=== PATIENT | female | born 1935 | race Caucasian/White ===

== ENCOUNTER 2017-04-29 07:42 | Emergency (ER) | payer OTHER ==
[~2017-04-29] VITALS: Ht 157.5 cm; Wt 68.4 kg
[~2017-04-29 07:42] MED LIST: ASPI-391; ASPI81TA28 PO; ATEN-175 PO; ATOR-22 PO; ATV/1 PO; CHOL100010 PO; LOSA50TA6 PO
[2017-04-29 07:46] VITALS: Ht 157.5 cm; Wt 68.4 kg
[2017-04-29] MEDS ORDERED: TRIAMCINOLONE ACET 0.1% CR 15 GM TUBE EXT STA (08:11)
[2017-04-29] MEDS ORDERED: PRED20TA PO (08:16)
--- NOTE | 2017-04-29 08:57 | EMERGENCY ROOM VISIT NOTE ---
History Report prepared by Paula: Hedy Rivas Under the Supervision of: Dr. Jakub Carrillo M.D. First contact with patient: 08:02 Chief Complaint: RASH Stated Complaint: RASH,ITCHINESS,ALLERGIC REACTION History of Present Illness The patient is an 81 year old female who presents to the Emergency Room with complaints of a worsening rash that started 5 days ago. The patient states that she started a new topical medication 8 days ago and then developed the rash 3 days after. She states that the rash is pruritic and started on the back of her neck. She states that the rash started out feeling and looking like a mosquito bite. The rash has spread to her bilateral arms and she noticed an erythematous patch on her face today which caused her to become more concerned. The patient states that she was not applying the new topical medication to the places that she has the rash but she read that a reaction can occur in other areas than the places she applied the topical medication to. The patient states that she was able to relieve the pruritus with hydrocortisone cream, but it did not resolve the rash itself. Pt denies LOC, headache, fevers, chills, diaphoresis, visual changes, rash in mouth or nose, cough, recent flu-like symptoms, neck pain, chest pain, breathing difficulties, nausea, vomiting, abdominal pain, back pain , urinary symptoms, numbness, weakness, lymphadenopathy, or other complaints. She also denies any possible contact with poison bhavya and states that she lives at the [place]. She states that she only goes outside to water her abdullahi. The patient denies any history of diabetes. She also denies using oral steroids in the past. Source of History: patient Onset: 5 days ago Position: head, neck, arm (bilateral) Quality: other (rash) Timing: worsening Note: pruritus Review of Systems See HPI for pertinent positives and negatives. A total of 6 systems were reviewed and were otherwise negative. Past Medical & Surgical Medical Problems: (1) Glaucoma (2) High cholesterol (3) Hypertension Family History Hypertension Social History Smoking Status: Never Smoker Alcohol Use: none Marital Status: Housing Status: lives with family Occupation Status: retired Current/Historical Medications Scheduled Aspirin (Aspirin Ec), 81 MG PO DAILY Ezrvthw-Ixgjatrnahdsd-Kjmsucme (Excedrin Extra Strength), PRN Atenolol (Tenormin), 100 MG PO DAILY Atorvastatin (Lipitor), 40 MG PO DAILY Cholecalciferol (Vitamin D), 1,000 UNITS PO DAILY Losartan Potassium (Cozaar), 50 MG PO DAILY Prednisone (Prednisone), 20 MG PO DAILY Scheduled PRN Lorazepam (Ativan), 1 MG PO TID PRN for Anxiety Allergies Coded Allergies: Amoxicillin (Verified Allergy, Mild, RASH, 04/29/17) Sulfa Drugs (Verified Allergy, Mild, RASH, 04/29/17) Sulfamethoxazole w/Trimethoprim (Verified Allergy, Mild, RASH, 04/29/17) Benzalkonium Chloride (Verified Allergy, Unknown, EYE ITCHING, 04/29/17) Penicillins (Verified Allergy, Unknown, 04/29/17) Travoprost (Verified Allergy, Unknown, EYE ITCHING, 04/29/17) Uncoded Allergies: DISPRONOX (Allergy, Unknown, unknown, 12/06/14) Physical Exam Vital Signs Date Time Temp Pulse Resp B/P (MAP) Pulse Ox O2 Delivery O2 Flow Rate FiO2 04/29/17 07:46 37.0 87 18 149/85 98 Room Air Physical Exam GENERAL: Awake, alert, well-appearing, in no distress HENT: Normocephalic, atraumatic. Oropharynx unremarkable. EYES: Normal conjunctiva. Sclera non-icteric. PERRLA. NECK: Supple. No nuchal rigidity. FROM. RESPIRATORY: Clear to auscultation. CARDIAC: Regular rate, normal rhythm. Extremities warm and well perfused. Pulses equal. ABDOMEN: Soft, non-distended. No tenderness to palpation. No rebound or guarding. No masses. MUSCULOSKELETAL: Chest examination reveals no tenderness. The back is symmetrical on inspection without obvious abnormality. There is no CVA tenderness to palpation. No joint edema. LOWER EXTREMITIES: Calves are equal size bilaterally and non-tender. No edema. No discoloration. NEURO: Normal sensorium. No sensory or motor deficits noted. SKIN: Erythematous patches on the back of the neck, above the right eyelid, left antecubital forearm arm area, and the right antecubital forearm area. No jaundice noted. No vesicles. No bullae. No cellulitis or petechiae. Medical Decision & Procedures Medications Administered Medications (Trade) Dose Ordered Sig/Alan Route Start Time Stop Time Status Last Admin Dose Admin Prednisone (PredniSONE TAB) 20 mg NOW STAT PO 04/29/17 08:11 04/29/17 08:14 DC 04/29/17 08:18 20 MG Triamcinolone Acetonide (Kenalog 0.1% Cream) 1 appln NOW STAT EXT 04/29/17 08:11 04/29/17 08:14 DC 04/29/17 08:49 1 APPLN ED Course 0806: The patient was evaluated in room B8. A complete history and physical exam was performed. 08: Ordered Triamcinolone Acetonide 1 appln EXT, Prednisone 20 mg PO 0817: After examination, discussed results and discharge instructions: she verbalized understanding and agreement. The patient is ready for discharge. Medical Decision Medication Reconciliation: I attest that I have personally reviewed the patient' s current medication list Blood pressure screening: Patient was found to have an elevated blood pressure and was referred to their primary doctor for recheck and further treatment. Triage Nursing notes reviewed and agree them. The patient's history was concerning for a rash. Differential diagnosis: Etiologies such as contact dermatitis, medication reaction, Francisco-Fernando syndrome, toxic epidermal necrolysis, erythema multiforme, cellulitis, scabies, HSV, varicella, zoster, eczema, staph scalded skin syndrome, viral exanthem, fungal infection, urticaria, allergic reaction, as well as others were entertained. Physical examination: As above. No bull's-eye appearance. Scattered erythematous patches. Had the appearance of possible contact dermatitis. ER treatment provided: Oral prednisone 20 mg Topical triamcinolone Diagnostic interpretation by me: Deferred The etiology for the patient's rash is not clearly evident at this time. I suspect it is a contact dermatitis or medication reaction.I gave my usual and customary discussion regarding this issue. She has already stopped the medication. By the evaluation outlined above emergent etiologies such as Francisco-Fernando syndrome, toxic epidermal necrolysis, erythema multiforme, cellulitis, scabies, HSV, varicella, zoster, staph scalded skin syndrome, urticaria, allergic reaction, as well as others were deemed relatively unlikely. The patient was informed about the findings as listed above. All questions were answered and she was pleased with the treatment. Return instructions were outlined and the patient was discharged in stable condition. Outpatient prescription management: Triamcinolone Prednisone Referral: The patient was referred back to her primary care physician for follow-up in 2- 3 days for a recheck of the current condition. Impression Primary Impression: Rash Scribe Attestation The scribe's documentation has been prepared under my direction and personally reviewed by me in its entirety. I confirm that the note above accurately reflects all work, treatment, procedures, and medical decision making performed by me. Departure Information Dispostion Home / Self-Care Prescriptions Prednisone (Prednisone) 20 Mg Tab 20 MG PO DAILY for 4 Days, #4 TAB Prov: Jakub Carrillo MD 04/29/17 Referrals Starr Abernathy DO (PCP) Forms HOME CARE DOCUMENTATION FORM, IMPORTANT VISIT INFORMATION, WORK / SCHOOL INSTRUCTIONS Patient Instructions My [facility] Additional Instructions Prednisone 20 mg: Once daily until the prescription is finished. Triamcinolone cream: Apply twice daily as needed for rash. Tylenol: Take 1000 mg every 6 hours as needed for pain. Do not take more than 3000 mg in a 24 hour period. Review the package insert for all your medications. This is necessary as important health information is provided for your benefit and current care. Return to the ER immediately for spreading redness, fevers, pus-like drainage, severe pain, or as needed. Follow-up with your primary care physician in 2 to 3 days for a recheck of your current condition.
[2017-04-29 09:05] VITALS: BP 150/92; PULSE 78; TEMP 37; O2SAT 98
== END 2017-04-29 09:06 | disposition home or self-care (01) ==
LOC: C.EDB 07:43
DX: R21 Rash and other nonspecific skin eruption (principal); E78.00 Pure hypercholesterolemia, unspecified; I10 Essential (primary) hypertension; H40.9 Unspecified glaucoma; Z82.49 Family history of ischemic heart disease and other diseases of the circulatory system; Z79.82 Long term (current) use of aspirin; Z79.899 Other long term (current) drug therapy

== ENCOUNTER → 2017-05-22 | Outpatient (CLI) | payer OTHER ==
--- NOTE | 2017-05-22 16:07 | MAMMOGRAPHY REPORT ---
BILATERAL DIGITAL SCREENING MAMMOGRAM WITH CAD: 05/22/2017 CLINICAL HISTORY: Routine screening. Patient has no complaints. TECHNIQUE: Bilateral CC and MLO views were obtained. Current study was also evaluated with a Compute r Aided Detection (CAD) system. COMPARISON: Comparison is made to exams dated: 05/19/2016 mammogram, 05/18/2015 mammogram, 05/15/2014 josh mogram, 05/07/2013 mammogram, 11/11/2011 mammogram, and 04/29/2011 ultrasound - [facility]. BREAST COMPOSITION: There are scattered areas of fibroglandular density in both breasts. FINDINGS: There are numerous bilateral benign-appearing coarse and rodlike calcifications in the janice sts. Stable nodularity in the lateral right breast. No new suspicious mass, architectural distortio n or cluster of microcalcifications is seen. IMPRESSION: ACR BI-RADS CATEGORY 1: NEGATIVE There is no mammographic evidence of malignancy. A 1 year screening mammogram is recommended. The pa tient will receive written notification of the results. Approximately 10% of breast cancers are not detected with mammography. A negative mammographic report should not delay biopsy if a clinically suggestive mass is present. Arlene Buckley M.D. ay/:05/22/2017 12:28:44 Logistics Engineering Manager: Josefina [place])([place]), [facility] letter sent: Normal 1/2 BI-RADS Code: ACR BI-RADS Category 1: Negative
== END | disposition home or self-care (01) ==
LOC: C.MAMM 10:49
PROVIDERS: ATTEND Family Medicine
DX: Z12.31 Encounter for screening mammogram for malignant neoplasm of breast (principal)

== ENCOUNTER 2021-08-04 11:47 | Inpatient (IN) ==
--- NOTE | 2021-08-04 13:14 | Emergency Department Note ---
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 Patient's evidently by friends reports since Damian been having some more odd behaviors. Has a daughter at home that she calls David that she talks to and the doll watches TV with her. Patient is very scientology and is for several years. Evidently the patient has been exhibiting some more concerning symptoms and worsening hallucinations. Patient's evidently been saying that her 's been in the car with her while he is and that she is planning to meet him in [facility] at 3 PM this afternoon. She was evidently found wandering along the road near her assisted living facility today and friends were called and they brought her here for further evaluation. Patient is evidently been caring for self at home and taking care of her house appropriately. Patient tells me that her dog David told her not to take her medications this morning other than her vitamin and aspirin. She states that she would not try to harm her self but she is going to see her in [facility] at 3 PM today as is her 65th wedding anniversary. No falls or traumas reported. Patient denies any pain or headache. REVIEW OF SYSTEMS: A total of 10 review of systems was obtained and negative except as stated above in the HPI. PAST MEDICAL HISTORY: As noted above MEDICATIONS: Reviewed home medications SOCIAL HISTORY: , lives at home by herself PHYSICAL EXAM: GENERAL: alert and oriented in no acute distress on stretcher with friends at bedside Head: normocephalic and atraumatic EYES: No injection, discharge or icterus. NECK: Trachea midline. LUNGS: Airway patent. No retractions or tachypnea HEART: Regular rate and rhythm. No chest wall tenderness ABDOMEN: Soft and non-tender, without guarding or rebound. EXTREMITIES: Without swelling, tenderness or deformity NEUROLOGICAL: No focal deficits moving all extremities without difficulty. No aphasia. No facial droop or slurred speech Psych: Denies significant depression or suicidal ideation. Makes some grandiose statements that she is going to meet David and her in [facility] this afternoon and has a David doll at home. EK bpm normal sinus rhythm. No PVC or PAC. No acute ST segment elevation or depression. QTC 456. CONTINUOUS CARDIAC MONITORING: was ordered and showed a heart rate of 60-80s bpm in NSR Patient's laboratory studies and imaging reviewed. Differential includes Mood disorder, infection, hypoglycemia, electrolyte abnormalities, cardiac sources, intracerebral event, toxicologic, trauma, neurologic, as well as other pathologies. IMPRESSION/MEDICAL DECISION MAKING: Some component of chronic behaviors and hallucinations at home though the patient does not appear to have significant memory deficits. Having hallucinations about other people being around as well as going to meet her in [facility] this afternoon. Concerning history that she began to wander today and that she is talking about meeting her in [facility] although she is not espousing suicidal intentions. Do not believe she is a threat to her self to try to actively harm her self. Patient without focal deficits. Broad work-up was completed however given her age. Blood work here without significant leukocytosis or anemia. Afebrile. No severe electrolyte abnormality noted. Urinalysis very concerning for UTI. CT of the head per radiology was completed without acute abnormality. Blood work is reassuring. Urine does appear infected. Covered with ceftriaxone here with a urine empirically. Discussed the patient especially given some safety concerns from my standpoint that further observation here be warranted and she was in agreement at this time to stay at least overnight. Updated her son (in [place]) with her permission via phone regarding the situation. Again both friends and the patient's son have concerns about the patient's confusion and delusional thoughts and now she is having wandering. Will likely need a change in care status (whether SNF etc) for her safety when she is able to be discharged. Case management is aware of the situation. DIAGNOSIS: Acute TIA, hallucinations DISPOSITION: Hospitalist will evaluate Patient was agreeable with this plan. 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 CKD (chronic kidney disease) stage 3, GFR 30-59 ml/min Glaucoma High cholesterol Hypertension Lumbago Osteoarthritis Spinal stenosis, lumbar region with neurogenic claudication Multilevel multifactorial lumbar spinal canal stenosis most prominent at L3- L4 with AP diameter of 0.5 cm Surgical History History of cataract extraction with lens replacement Bilateral Status post blepharoplasty of both eyes Family History Denies family history of Heart disease Social History (Updated 08/04/21 @ 16:48 by Adrienne Smith PA-C) Smoking Status: Never smoker Do You Dip or Chew Tobacco: No; Hx Alcohol Use: No Hx Substance Use: No Preferred Language: Yakut Communication Ability: Effective Visual Impairment: No Limitations Hearing Ability: Normal Guest Relations Receptionist Required: No Beliefs That Will Affect Care: None marital status: Current Living Situation: Personal Care Facility Current Living Situation Comment: independent living at the [facility] current occupational status: retired Other Information That Helps Us Care for You: No Feels Safe at Home: Yes Safety Concerns: Feels Safe At This Time Safety Concerns Comment: Patient states she lives at the [facility] Assistive Devices: Glasses Allergies Allergies Allergy/AdvReac Type Severity Reaction Status Date / Time amoxicillin Allergy Mild RASH Verified 08/04/21 14:16 Bactrim Allergy Mild RASH Verified 04/29/17 08:25 sulfamethoxazole Allergy Mild RASH Verified 08/04/21 14:16 trimethoprim Allergy Mild RASH Verified 08/04/21 14:16 benzalkonium chloride Allergy Unknown EYE ITCHING Verified 08/04/21 14:16 Penicillins Allergy Unknown Verified 08/04/21 14:16 travoprost Allergy Unknown EYE ITCHING Verified 08/04/21 14:16 DISPRONOX Allergy Unknown unknown Uncoded 08/04/21 14:16 Home Meds Home Medications Medication Instructions Recorded Confirmed hydralazine 25 mg tablet 25 mg PO TID 09/20/19 08/04/21 aspirin 81 mg tablet,delayed 81 mg PO HS tab 10/18/19 08/04/21 release (Adult Aspirin Regimen) atorvastatin 40 mg tablet 40 mg PO QPM 10/18/19 08/04/21 atenolol 50 mg tablet 50 mg PO QAM 08/04/21 08/04/21 calcium carbonate 600 mg (1,500 1 tab PO DAILY 08/04/21 08/04/21 mg)-vitamin D3 400 unit tablet (Calcium 600 + D(3)) losartan 100 mg tablet 100 mg PO HS 08/04/21 08/04/21 multivitamin 1 tab PO QAM 08/04/21 08/04/21 timolol maleate 0.5 % eye drops 1 drp OPB QA 08/04/21 08/04/21 Results & Data (ED) Vital Signs Vital Signs - 24 hr 08/04/21 11:47 08/04/21 13:43 08/04/21 15:00 Temperature 36.8 C Temperature Source Oral Pulse Rate 83 Pulse Rate [Radial] 72 64 Pulse Rhythm [Radial] Regular Respiratory Rate 18 18 18 Respiratory Effort / Characteristics Non-Labored Non-Labored Non-Labored Respiratory Depth Normal Normal Normal Respiratory Pattern Regular Regular Regular Blood Pressure 159/87 H Blood Pressure [Left Arm] 170/87 H 166/90 H Blood Pressure Mean 111 Blood Pressure Mean [Left Arm] 114 115 Pulse Oximetry 96 99 93 Oxygen Delivery Method Room Air Room Air Room Air Sepsis Recent Fever Within 48 Hours No Sepsis New/Unexplained Change in Mental Status No Sepsis Action Taken by Nursing No Action Required Laboratory Data Result diagrams: 08/04/21 13:18 08/04/21 13:18 Lab Results 08/04/21 08/04/21 08/04/21 Range/Units 13:18 13:18 13:18 WBC 6.13 (4.8-10.8) K/uL RBC 4.18 L (4.2-5.4) M/uL Hgb 13.2 (12.0-16.0) g/dL Hct 39.2 (37-47) % MCV 93.8 (80-100) fL MCH 31.6 (25-34) pg MCHC 33.7 (32-36) g/dL RDW Std Deviation 46.5 H (36.4-46.3) fL RDW Coeff of Scott 13.5 (11.5-14.5) % Plt Count 267 (130-400) K/uL MPV 10.7 H (7.4-10.4) fL Immature Gran % (Auto) 0.2 % Neut % (Auto) 53.0 % Lymph % (Auto) 39.6 % Woods % (Auto) 5.9 % Eos % (Auto) 1.0 % Baso % (Auto) 0.3 % Neut # (Auto) 3.25 (1.4-6.5) K/uL Lymph # (Auto) 2.43 (1.2-3.4) K/uL Woods # (Auto) 0.36 (0.11-0.59) K/uL Eos # (Auto) 0.06 (0-0.5) K/uL Baso # (Auto) 0.02 (0-0.2) K/uL Immature Gran # (Auto) 0.01 (0.00-0.02) K/uL Sodium 141 (136-145) mmol/L Potassium 3.6 (3.5-5.1) mmol/L Chloride 113 H (98-107) mmol/L Carbon Dioxide 24 (21-32) mmol/L Anion Gap 4.0 (3-11) BUN 26 H (7-18) mg/dl Creatinine 1.03 (0.6-1.2) mg/dl Est Cr Clr Drug Dosing 34.5 ml/min Est GFR ( Amer) 57.4 ml/min Est GFR (Non-Af Amer) 49.5 ml/min BUN/Creatinine Ratio 25.0 H (10-20) Glucose 96 (70-99) mg/dl Calcium 9.5 (8.5-10.1) mg/dl Total Bilirubin 0.4 (0.2-1) mg/dl AST 20 (15-37) U/L ALT 16 (12-78) U/L Alkaline Phosphatase 68 (45-117) U/L Total Protein 8.1 (6.4-8.2) gm/dl Albumin 3.8 (3.4-5.0) gm/dl Globulin 4.3 H (2.5-4.0) gm/dl Albumin/Globulin Ratio 0.9 (0.9-2) TSH 1.590 (0.300-4.500) uIu/ml Urine Color Urine Appearance (Clear) Urine pH (4.5-7.5) Ur Specific Berino (1.000-1.030) Urine Protein (Negative) Urine Glucose (UA) (Negative) Urine Ketones (Negative) Urine Blood (Negative) Urine Nitrite (Negative) Urine Bilirubin (Negative) Urine Urobilinogen (Negative) Ur Leukocyte Esterase (Negative) Urine WBC (Auto) (0-5) /hpf Urine RBC (Auto) (0-4) /hpf U Hyaline Cast (Auto) (0-5) /lpf U Epithel Cells (Auto) (0-5) /lpf Urine Bacteria (Auto) (Negative) Salicylates < 1.7 L (2.8-20) mg/dl Urine Opiates Screen (Neg) Ur Methadone, Qual (Neg) Acetaminophen < 2 L (10-30) ug/ml Urine Barbiturates (Neg) Ur Phencyclidine (PCP) (Neg) U Amphetamin/Meth Scrn (Neg) MDMA (Ecstasy) Screen (Neg) U Benzodiazepines Scrn (Neg) Ur Cocaine Metabolite (Neg) U Marijuana (THC) Screen (Neg) Ethyl Alcohol mg/dL (0-3) mg/dl COVID-19 Eval Order SARS-CoV-2 (PCR) (Negative) 08/04/21 08/04/21 08/04/21 Range/Units 13:18 13:18 13:18 WBC (4.8-10.8) K/uL RBC (4.2-5.4) M/uL Hgb (12.0-16.0) g/dL Hct (37-47) % MCV (80-100) fL MCH (25-34) pg MCHC (32-36) g/dL RDW Std Deviation (36.4-46.3) fL RDW Coeff of Scott (11.5-14.5) % Plt Count (130-400) K/uL MPV (7.4-10.4) fL Immature Gran % (Auto) % Neut % (Auto) % Lymph % (Auto) % Woods % (Auto) % Eos % (Auto) % Baso % (Auto) % Neut # (Auto) (1.4-6.5) K/uL Lymph # (Auto) (1.2-3.4) K/uL Woods # (Auto) (0.11-0.59) K/uL Eos # (Auto) (0-0.5) K/uL Baso # (Auto) (0-0.2) K/uL Immature Gran # (Auto) (0.00-0.02) K/uL Sodium (136-145) mmol/L Potassium (3.5-5.1) mmol/L Chloride (98-107) mmol/L Carbon Dioxide (21-32) mmol/L Anion Gap (3-11) BUN (7-18) mg/dl Creatinine (0.6-1.2) mg/dl Est Cr Clr Drug Dosing ml/min Est GFR ( Amer) ml/min Est GFR (Non-Af Amer) ml/min BUN/Creatinine Ratio (10-20) Glucose (70-99) mg/dl Calcium (8.5-10.1) mg/dl Total Bilirubin (0.2-1) mg/dl AST (15-37) U/L ALT (12-78) U/L Alkaline Phosphatase (45-117) U/L Total Protein (6.4-8.2) gm/dl Albumin (3.4-5.0) gm/dl Globulin (2.5-4.0) gm/dl Albumin/Globulin Ratio (0.9-2) TSH (0.300-4.500) uIu/ml Urine Color Urine Appearance (Clear) Urine pH (4.5-7.5) Ur Specific Berino (1.000-1.030) Urine Protein (Negative) Urine Glucose (UA) (Negative) Urine Ketones (Negative) Urine Blood (Negative) Urine Nitrite (Negative) Urine Bilirubin (Negative) Urine Urobilinogen (Negative) Ur Leukocyte Esterase (Negative) Urine WBC (Auto) (0-5) /hpf Urine RBC (Auto) (0-4) /hpf U Hyaline Cast (Auto) (0-5) /lpf U Epithel Cells (Auto) (0-5) /lpf Urine Bacteria (Auto) (Negative) Salicylates (2.8-20) mg/dl Urine Opiates Screen (Neg) Ur Methadone, Qual (Neg) Acetaminophen (10-30) ug/ml Urine Barbiturates (Neg) Ur Phencyclidine (PCP) (Neg) U Amphetamin/Meth Scrn (Neg) MDMA (Ecstasy) Screen (Neg) U Benzodiazepines Scrn (Neg) Ur Cocaine Metabolite (Neg) U Marijuana (THC) Screen (Neg) Ethyl Alcohol mg/dL < 3.0 (0-3) mg/dl COVID-19 Eval Order Covid19 at [facility] SARS-CoV-2 (PCR) NEGATIVE (Negative) 08/04/21 08/04/21 Range/Units 13:24 13:24 WBC (4.8-10.8) K/uL RBC (4.2-5.4) M/uL Hgb (12.0-16.0) g/dL Hct (37-47) % MCV (80-100) fL MCH (25-34) pg MCHC (32-36) g/dL RDW Std Deviation (36.4-46.3) fL RDW Coeff of Scott (11.5-14.5) % Plt Count (130-400) K/uL MPV (7.4-10.4) fL Immature Gran % (Auto) % Neut % (Auto) % Lymph % (Auto) % Woods % (Auto) % Eos % (Auto) % Baso % (Auto) % Neut # (Auto) (1.4-6.5) K/uL Lymph # (Auto) (1.2-3.4) K/uL Woods # (Auto) (0.11-0.59) K/uL Eos # (Auto) (0-0.5) K/uL Baso # (Auto) (0-0.2) K/uL Immature Gran # (Auto) (0.00-0.02) K/uL Sodium (136-145) mmol/L Potassium (3.5-5.1) mmol/L Chloride (98-107) mmol/L Carbon Dioxide (21-32) mmol/L Anion Gap (3-11) BUN (7-18) mg/dl Creatinine (0.6-1.2) mg/dl Est Cr Clr Drug Dosing ml/min Est GFR ( Amer) ml/min Est GFR (Non-Af Amer) ml/min BUN/Creatinine Ratio (10-20) Glucose (70-99) mg/dl Calcium (8.5-10.1) mg/dl Total Bilirubin (0.2-1) mg/dl AST (15-37) U/L ALT (12-78) U/L Alkaline Phosphatase (45-117) U/L Total Protein (6.4-8.2) gm/dl Albumin (3.4-5.0) gm/dl Globulin (2.5-4.0) gm/dl Albumin/Globulin Ratio (0.9-2) TSH (0.300-4.500) uIu/ml Urine Color Yellow Urine Appearance Clear (Clear) Urine pH 5.5 (4.5-7.5) Ur Specific Berino 1.018 (1.000-1.030) Urine Protein Trace H (Negative) Urine Glucose (UA) Negative (Negative) Urine Ketones Negative (Negative) Urine Blood Negative (Negative) Urine Nitrite Positive A (Negative) Urine Bilirubin Negative (Negative) Urine Urobilinogen Negative (Negative) Ur Leukocyte Esterase 1+ H (Negative) Urine WBC (Auto) >30 H (0-5) /hpf Urine RBC (Auto) 0-4 (0-4) /hpf U Hyaline Cast (Auto) 1-5 (0-5) /lpf U Epithel Cells (Auto) 0-5 (0-5) /lpf Urine Bacteria (Auto) 4+ H (Negative) Salicylates (2.8-20) mg/dl Urine Opiates Screen Neg (Neg) Ur Methadone, Qual Neg (Neg) Acetaminophen (10-30) ug/ml Urine Barbiturates Neg (Neg) Ur Phencyclidine (PCP) Neg (Neg) U Amphetamin/Meth Scrn Neg (Neg) MDMA (Ecstasy) Screen Neg (Neg) U Benzodiazepines Scrn Neg (Neg) Ur Cocaine Metabolite Neg (Neg) U Marijuana (THC) Screen Neg (Neg) Ethyl Alcohol mg/dL (0-3) mg/dl COVID-19 Eval Order SARS-CoV-2 (PCR) (Negative) Administered Medications Sodium Chloride (Nss 1000ml) 1,000 mls @ 80 mls/hr IV .[id number] ANALY Stop: 08/05/21 05:57 Last Admin: 08/04/21 18:26 Dose: 80 mls/hr Documented by: [id number] Discontinued Medications Ceftriaxone Sodium (Rocephin) 1,000 mg in 50 mls @ 100 mls/hr IV NOW STA Stop: 08/04/21 15:10 Last Infusion: 08/04/21 15:30 Dose: 0 mls/hr Documented by: [id number] Admin: 08/04/21 15:00 Dose: 100 mls/hr Documented by: [id number] Ceftriaxone Sodium 1,000 mg/ (Dextrose) 50 mls @ 100 mls/hr IV ONE ONE; Protocol Stop: 08/04/21 18:14 Last Infusion: 08/04/21 19:09 Dose: 0 mls/hr Documented by: [id number] Admin: 08/04/21 18:33 Dose: 100 mls/hr Documented by: [id number] Imaging Data Radiologist's Impression: Head CT 08/04/21 13:00 CT OF THE HEAD WITHOUT CONTRAST CLINICAL HISTORY: Confusion. COMPARISON STUDY: No previous studies for comparison. CT DOSE: 537.48 mGy.cm TECHNIQUE: Helical axial images of the head were obtained without IV contrast. Automated exposure control was utilized for the study. A dose lowering technique was utilized adhering to the principles of ALARA. FINDINGS: No acute intracranial hemorrhage, midline shift or mass effect is present. White matter hypodensities are suggestive of small vessel disease. The ventricular system is unremarkable. The basal cisterns are patent. No extra- axial collections are present. There are no findings to suggest acute dural sinus thrombosis or acute territorial infarct. No significant calvarial abnormalities are present. Visualized portions of the sinuses and mastoid air cells are clear. IMPRESSION: No acute intracranial findings. ACT 112: Negative or not required by law. Electronically signed by: Salvatore Franklin M.D. 08/04/2021 2:19 PM Discharge Plan Visit Data Chief Complaint: Altered Mental Status Stated Complaint: Hallucinations ED Provider: Cj Mcclellan Discharge Problem: Hallucination, Acute UTI Discharge Instructions Interventions: ED Discharge Assessment Last Done: 08/04/21 16:37
[2021-08-04 13:36] LABS: Basophils # (auto) 0.02 K/uL (0-0.2); Basophils % (auto) 0.3 %; Eosinophils # (auto) 0.06 K/uL (0-0.5); Hematocrit (blood only) 39.2 % (37-47); Hemoglobin 13.2 g/dL (12.0-16.0); Immature Granulocytes # (auto) 0.01 K/uL (0.00-0.02); Immature Granulocytes % (auto) 0.2 %; Lymphocytes # (auto) 2.43 K/uL (1.2-3.4); Lymphocytes % (auto) 39.6 %; Mean Corpuscular Hemoglobin 31.6 pg (25-34); Mean Corpuscular Hgb Conc 33.7 g/dL (32-36); Mean Corpuscular Volume 93.8 fL (80-100); Mean Platelet Volume 10.7 fL (7.4-10.4); Monocytes # (auto) 0.36 K/uL (0.11-0.59); Monocytes % (auto) 5.9 %; Neutrophils # (auto) 3.25 K/uL (1.4-6.5); Platelet Count 267 K/uL (130-400); RDW Coefficient of Variation 13.5 % (11.5-14.5); RDW Standard Deviation 46.5 fL (36.4-46.3); Red Blood Count 4.18 M/uL (4.2-5.4); White Blood Count 6.13 K/uL (4.8-10.8)
[2021-08-04 13:48] LABS: Appearance Urine Clear (Clear); Bacteria Urine Automated 4+ (Negative); Bilirubin Urine Negative (Negative); Blood Urine Negative (Negative); Color Urine Yellow; Epithelial Cell Urine Auto 0-5 /lpf (0-5); Glucose Urine UA Negative (Negative); Ketones Urine Negative (Negative); Leukocyte Esterase Urine 1+ (Negative); Nitrite Urine Positive (Negative); Protein Urine Trace (Negative); RBC Urine Automated 0-4 /hpf (0-4); Specific Gravity Urine 1.018 (1.000-1.030); Urobilinogen Urine Negative (Negative); WBC Urine Automated >30 /hpf (0-5); pH Urine 5.5 (4.5-7.5)
[2021-08-04 13:54] LABS: Acetaminophen < 2 ug/ml (10-30); Albumin Level 3.8 gm/dl (3.4-5.0); Calcium 9.5 mg/dl (8.5-10.1); Creatinine Clr Calc Pharmacy 34.5 ml/min; Est GFR (African American) 57.4 ml/min; Est GFR (Non-African American) 49.5 ml/min; Potassium 3.6 mmol/L (3.5-5.1); Salicylate < 1.7 mg/dl (2.8-20)
[2021-08-04 14:04] LABS: Albumin Globulin Ratio 0.9 (0.9-2); Bilirubin,Total 0.4 mg/dl (0.2-1); Globulin 4.3 gm/dl (2.5-4.0); Thyroid Stimulating Hormone 1.59 uIu/ml (0.300-4.500); Total Protein 8.1 gm/dl (6.4-8.2)
[2021-08-04 14:15] LABS: Amphetamines+Metham, Urine Neg (Neg); Barbiturates, Urine Neg (Neg); Benzodiazepine, Urine Neg (Neg); Cocaine, Urine Neg (Neg); MDMA (Ecstacy), Urine Neg (Neg); Methadone, Urine Neg (Neg); Opiate, Urine Neg (Neg); Phencyclidine, Urine Neg (Neg)
--- NOTE | 2021-08-04 14:20 | CT Scan Report ---
CT OF THE HEAD WITHOUT CONTRAST CLINICAL HISTORY: Confusion. COMPARISON STUDY: No previous studies for comparison. CT DOSE: 537.48 mGy.cm TECHNIQUE: Helical axial images of the head were obtained without IV contrast. Automated exposure con trol was utilized for the study. A dose lowering technique was utilized adhering to the principles o f ALARA. FINDINGS: No acute intracranial hemorrhage, midline shift or mass effect is present. White matter hyp odensities are suggestive of small vessel disease. The ventricular system is unremarkable. The basal cisterns are patent. No extra-axial collections are present. There are no findings to suggest acute d ural sinus thrombosis or acute territorial infarct. No significant calvarial abnormalities are presen t. Visualized portions of the sinuses and mastoid air cells are clear. IMPRESSION: No acute intracranial findings. ACT 112: Negative or not required by law. Electronically signed by: Salvatore Franklin M.D. 08/04/2021 2:19 PM
[2021-08-04] MEDS ORDERED: cefTRIAXone SODIUM 1,000 MG/50 ML BAG IV STA (14:41)
--- NOTE | 2021-08-04 17:01 | History & Physical Report ---
Date of Service August 04, 2021 Assessment & Plan (1) UTI (urinary tract infection): (2) Hallucination: (3) Hypertension: (4) CKD (chronic kidney disease) stage 3, GFR 30-59 ml/min: (5) DVT prophylaxis: Plan: This is an 85-year-old female who has significant past medical history of HTN, HLD, CKD stage III, glaucoma, lumbar spinal stenosis who presents to ED secondary to hallucinations x1 year with over worsening in the past month. UTI await urine culture tx with empiric rocephin 2g daily no s/sx of sirs/sepsis gentle hydration with IVF x 1 L Hallucination, visual pt with very real hallucinations regarding her and David Footwear Sales Leader at bedside states pt has always been committed to her armida and her and over past year has been manifesting it self outward in these visual hallucinations which to the patient are very real, recently in past month has gotten significantly worse. 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 Other than UTI no overt organic cause. TSH WNL obtain b12, RPR CT head negative consult psych for further eval HTN bp stable conitne hydralazine, losartan and atenolol HLD continue statin CKD 3 monitor renal function avoid nephrotoxic agents baseline cr 1.0 Dispo: med/surg, pt/ot, psych eval, will need to be determined if pt safe to return to independent living PCP: Josemanuel FULL CODE Pt was seen and examined in collaboration with Dr. Vazquez, please see addendum Pt son James is POA and wishes to be called with updates, he resides in [place]. Footwear Sales Leader at bedside is Saad Hector, , states if patient becomes disoriented or needs re orienting typically he is able to help. Also his is Anjali Hector who is a nurse at this facility Will place 1:1 prn in event of delirium History of Present Illness Chief Complaint: Hallucinations x 1 year; worsening x 1 month. Primary Care Provider: Starr Abernathy, DO This is an 85-year-old female who has significant past medical history of HTN, HLD, CKD stage III, glaucoma, lumbar spinal stenosis who presents to ED secondary to hallucinations x1 year with over worsening in the past month. Her very close friend and component inspector is at bedside. She currently resides at [facility] in independent living. When asked what brought her to the hospital she states, "I am unsure I feel well." Footwear Sales Leader elicits that over the past year patient has been having significant visualizations of her who has been passed for approximately 9 years as well as conversation with David. Today would Pipe their 65th wedding anniversary. Patient elicits to having very little conversations with her and David about a green party that was planned for today that was going to occur in [facility]. She was told there would be food and that she would not need to take her medications. She was told the green party was going to be at 3 PM in a very distinct location was marked for this event. She was found wandering outside of the [facility], and stated she was going to this green party. Due to concern she was brought to the ER. Footwear Sales Leader states that the patient has been very close with her armida all of her life. Over the past year it has seemed to manifest itself more prominently, specifically visually. She did have a neuropsychiatric evaluation at the end of June which revealed concerns for dementia; however, for the past year patient is very sharp and in good shape given age. Patient overall feels well denies any acute concerns. She denies any recent illness, fever, chills, sweats, lightheadedness, dizziness, chest pain, shortness breath, cough, nausea, vomiting, abdominal pain. She denies any dysuria, increased with urgency or frequency or hematuria. She is moving her bowels normally. She did not take any of her medications today. She admits to visualizations and they are reality for her. Allergies Allergy/AdvReac Type Severity Reaction Status Date / Time amoxicillin Allergy Mild RASH Verified 08/04/21 14:16 Bactrim Allergy Mild RASH Verified 04/29/17 08:25 sulfamethoxazole Allergy Mild RASH Verified 08/04/21 14:16 trimethoprim Allergy Mild RASH Verified 08/04/21 14:16 benzalkonium chloride Allergy Unknown EYE ITCHING Verified 08/04/21 14:16 Penicillins Allergy Unknown Verified 08/04/21 14:16 travoprost Allergy Unknown EYE ITCHING Verified 08/04/21 14:16 DISPRONOX Allergy Unknown unknown Uncoded 08/04/21 14:16 Home Medications Medication Instructions Recorded Confirmed Type hydralazine 25 mg tablet 25 mg PO TID 09/20/19 08/04/21 History aspirin 81 mg tablet,delayed 81 mg PO HS tab 10/18/19 08/04/21 History release (Adult Aspirin Regimen) atorvastatin 40 mg tablet 40 mg PO QPM 10/18/19 08/04/21 History atenolol 50 mg tablet 50 mg PO QAM 08/04/21 08/04/21 History calcium carbonate 600 mg (1,500 1 tab PO DAILY 08/04/21 08/04/21 History mg)-vitamin D3 400 unit tablet (Calcium 600 + D(3)) losartan 100 mg tablet 100 mg PO HS 08/04/21 08/04/21 History multivitamin 1 tab PO QAM 08/04/21 08/04/21 History timolol maleate 0.5 % eye drops 1 drp OPB QAM 08/04/21 08/04/21 History Past Med/Surg History Medical History 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 CKD (chronic kidney disease) stage 3, GFR 30-59 ml/min Glaucoma High cholesterol Hypertension Lumbago Osteoarthritis Spinal stenosis, lumbar region with neurogenic claudication Multilevel multifactorial lumbar spinal canal stenosis most prominent at L3- L4 with AP diameter of 0.5 cm Surgical History History of cataract extraction with lens replacement Bilateral Status post blepharoplasty of both eyes Family History Denies family history of Heart disease Social History Smoking Status: Never smoker Do You Dip or Chew Tobacco: No; Hx Alcohol Use: No Hx Substance Use: No Preferred Language: [place] Citizen Communication Ability: Effective Visual Impairment: No Limitations Hearing Ability: Normal Edger Hand Required: No Beliefs That Will Affect Care: None marital status: Current Living Situation: Personal Care Facility Current Living Situation Comment: [facility] current occupational status: retired Other Information That Helps Us Care for You: No Feels Safe at Home: Yes Safety Concerns: Feels Safe At This Time Safety Concerns Comment: Patient states she lives at the [facility] Assistive Devices: Walker Review of Systems Review of Systems: All systems reviewed & are unremarkable except as noted in HPI & below Physical Exam Physical Exam: Constitutional: WD/WN, F, elderly, vitals as above, NAD, sitting up in bed, pleasant, conversing easily Head: Normocephalic, Atraumatic Eyes: PERRL, conjunctivae normal, anicteric sclerae ENMT: external ear and nose normal, oropharynx normal Neck: trachea midline, no thyromegaly normal visual inspection Respiratory: normal respiratory effort, lungs clear to auscultation, no wheeze, rales, rhonchi. Normal insp/exp effort, no accessory muscle use Cardiovascular: RRR, no murmur, no edema Vessels: no JVD or carotid bruit Chest: normal inspection of chest Abdomen: normal bowel sounds, soft, nontender, no hepatosplenomegaly Musculoskeletal: no cyanosis or clubbing, extremities motor strength 5/5 Skin: no rashes, warm and dry normal turgor Neurologic: PERRL, EOMI, accommodation nl, no face palsy, no dysarthria CN's II-XI intact bilaterally and moves all extremities Psychiatric: A+Ox3, euthymic affect Lymphatic: no cervical or axillary lymphadenopathy : deferred Results & Data Results & Data ([facility]) Vital Signs (Past 12 Hours) Vital Signs Temp Pulse Pulse Resp BP BP Pulse Ox 08/04/21 16:36 74 18 168/91 H 95 08/04/21 15:00 64 18 166/90 H 93 08/04/21 13:43 72 18 170/87 H 99 08/04/21 11:47 36.8 C 83 18 159/87 H [address] 08/04/21 13:00 CT OF THE HEAD WITHOUT CONTRAST CLINICAL HISTORY: Confusion. COMPARISON STUDY: No previous studies for comparison. CT DOSE: 537.48 mGy.cm TECHNIQUE: Helical axial images of the head were obtained without IV contrast. Automated exposure control was utilized for the study. A dose lowering technique was utilized adhering to the principles of ALARA. FINDINGS: No acute intracranial hemorrhage, midline shift or mass effect is present. White matter hypodensities are suggestive of small vessel disease. The ventricular system is unremarkable. The basal cisterns are patent. No extra- axial collections are present. There are no findings to suggest acute dural sinus thrombosis or acute territorial infarct. No significant calvarial abnormalities are present. Visualized portions of the sinuses and mastoid air ce lls are clear. IMPRESSION: No acute intracranial findings. ACT 112: Negative or not required by law. Electronically signed by: Salvatore Franklin M.D. 08/04/2021 2:19 PM Medications Administered Medication List Discontinued Medications Ceftriaxone Sodium (Rocephin) 1,000 mg in 50 mls @ 100 mls/hr IV NOW STA Stop: 08/04/21 15:10 Last Infusion: 08/04/21 15:30 Dose: 0 mls/hr Documented by: [id number] Admin: 08/04/21 15:00 Dose: 100 mls/hr Documented by: [id number] ECG Rate (beats per minute): 73 Rhythm: normal sinus COVID-19 Results Results COVID-19 Adm Lab Results: RBC 3.87 M/uL (4.2-5.4) L 08/05/21 WBC 5.76 K/uL (4.8-10.8) 08/05/21 Hgb 12.5 g/dL (12.0-16.0) 08/05/21 Hct 36.4 % (37-47) L 08/05/21 Plt Count 232 K/uL (130-400) 08/05/21 Neutrophils (%) (Auto) 59.7 % 08/05/21 Lymphocytes (%) (Auto) 33.3 % 08/05/21 Monocytes # (Auto) 0.34 K/uL (0.11-0.59) 08/05/21 Eosinophils # (Auto) 0.05 K/uL (0-0.5) 08/05/21 Immature Granulocyte % (Auto) 0.0 % 08/05/21 Neutrophils # (Auto) 3.44 K/uL (1.4-6.5) 08/05/21 Lymphocytes # (Auto) 1.92 K/uL (1.2-3.4) 08/05/21 Monocytes # (Auto) 0.34 K/uL (0.11-0.59) 08/05/21 Eosinophils # (Auto) 0.05 K/uL (0-0.5) 08/05/21 Basophils # (Auto) 0.01 K/uL (0-0.2) 08/05/21 Immature Granulocyte # (Auto) 0.00 K/uL (0.00-0.02) 08/05/21 Na 142 mmol/L (136-145) 08/05/21 K 3.9 mmol/L (3.5-5.1) 08/05/21 Cl 114 mmol/L (98-107) H 08/05/21 CO2 21 mmol/L (21-32) 08/05/21 Anion Gap 7.0 (3-11) 08/05/21 BUN 24 mg/dl (7-18) H 08/05/21 Creatinine 1.01 mg/dl (0.6-1.2) 08/05/21 BUN/Creatinine Ratio 23.9 (10-20) H 08/05/21 Glucose Level 93 mg/dl (70-99) 08/05/21 Ca 8.9 mg/dl (8.5-10.1) 08/05/21 Total Bilirubin 0.4 mg/dl (0.2-1) 08/04/21 AST/SGOT 20 U/L (15-37) 08/04/21 ALT/SGPT 16 U/L (12-78) 08/04/21 Alkaline Phosphatase 68 U/L (45-117) 08/04/21 Total Protein 8.1 gm/dl (6.4-8.2) 08/04/21 Albumin 3.8 gm/dl (3.4-5.0) 08/04/21 Globulin 4.3 gm/dl (2.5-4.0) H 08/04/21 Albumin/Globulin Ratio 0.9 (0.9-2) 08/04/21 COVID-19 PCR NEGATIVE (Negative) 08/04/21 Code Status & VTE Plan Code Status Full Code VTE Prophylaxis Plan VTE Prophylaxis will be ordered: Yes Supervising Physician Co-Signing Physician Notes Altered mental status Hallucinations Possible UTI Start patient ceftriaxone. Urine cultures are pending. Will obtain psychiatric consult. I performed a history and physical examination of the patient on H&P, including specifically 08/04/21. I have discussed the patient's management with the advanced practitioner. Please refer to the Adrienne Smith note for the documented findings and plan of care.
[2021-08-04] MEDS ORDERED: MAGNESIUM HYDROXIDE SUSP 30 ML UDC PO PRN (17:28)
[2021-08-04] MEDS ORDERED: ALUMINUM/MAGNESIUM SUSP 30 ML UDC PO PRN (17:28)
[2021-08-04] MEDS ORDERED: SODIUM CHLORIDE 0.9% 1000ML 1,000 ML IV SCH (17:28)
[2021-08-04] MEDS ORDERED: POLYETHYLENE (MIRALAX) 17 GM PACK PO PRN (17:28)
[2021-08-04] MEDS ORDERED: ONDANSETRON INJ 2 MG/ML 2 ML VIAL IV PRN (17:28)
[2021-08-04] MEDS ORDERED: cefTRIAXone SODIUM 1,000 MG in DEXTROSE 5% 50 ML IV ONE ×2 (17:45→21:00)
[2021-08-04] MEDS: ACETAMINOPHEN 325 MG TAB PO PRN (20:22)
[2021-08-04] MEDS: ATORVASTATIN 40 MG TAB PO SCH (21:00)
[2021-08-04] MEDS: hydrALAZINE HCL 25 MG TAB PO SCH (21:00)
[2021-08-04] MEDS: LOSARTAN POTASSIUM 50 MG TAB PO SCH (21:00)
[2021-08-04] MEDS: ASPIRIN 81 MG ECTAB PO SCH (21:01)
[2021-08-04] MEDS: ENOXAPARIN INJ 30 MG/0.3 ML SYR SQ SCH (21:01)
[2021-08-05 07:26] LABS: Basophils # (auto) 0.01 K/uL (0-0.2); Basophils % (auto) 0.2 %; Eosinophils # (auto) 0.05 K/uL (0-0.5); Eosinophils % (auto) 0.9 %; Hematocrit (blood only) 36.4 % (37-47); Hemoglobin 12.5 g/dL (12.0-16.0); Lymphocytes # (auto) 1.92 K/uL (1.2-3.4); Lymphocytes % (auto) 33.3 %; Mean Corpuscular Hemoglobin 32.3 pg (25-34); Mean Corpuscular Hgb Conc 34.3 g/dL (32-36); Mean Corpuscular Volume 94.1 fL (80-100); Mean Platelet Volume 10.7 fL (7.4-10.4); Monocytes # (auto) 0.34 K/uL (0.11-0.59); Monocytes % (auto) 5.9 %; Neutrophils # (auto) 3.44 K/uL (1.4-6.5); Neutrophils % (auto) 59.7 %; Platelet Count 232 K/uL (130-400); RDW Coefficient of Variation 13.4 % (11.5-14.5); RDW Standard Deviation 46.2 fL (36.4-46.3); Red Blood Count 3.87 M/uL (4.2-5.4); White Blood Count 5.76 K/uL (4.8-10.8)
[2021-08-05 07:52] LABS: BUN Creatinine Ratio 23.9 (10-20); Calcium 8.9 mg/dl (8.5-10.1); Creatinine Clr Calc Pharmacy 35.2 ml/min; Est GFR (African American) 58.8 ml/min; Est GFR (Non-African American) 50.7 ml/min; Magnesium 1.8 mg/dl (1.8-2.4); Potassium 3.9 mmol/L (3.5-5.1)
[2021-08-05] MEDS: MULTIVITAMIN CHEWABLE TAB PO SCH (08:41)
[2021-08-05] MEDS: CALCIUM 600MG + VIT D 400 IU TAB PO SCH (08:41)
[2021-08-05] MEDS: TIMOLOL MALEATE 0.5% OP SOLN 5 ML BTL OPB SCH (08:41)
[2021-08-05] MEDS: hydrALAZINE HCL 25 MG TAB PO SCH ×3 (08:41→20:56)
[2021-08-05] MEDS: ATENOLOL 50 MG TABLET PO SCH (08:41)
[2021-08-05] MEDS ORDERED: TIMOLOL MALEATE 0.5% OP SOLN 5 ML BTL OPB SCH (09:00)
--- NOTE | 2021-08-05 13:08 | Electrocardiogram Report ---
Test Reason : Blood Pressure : / mmHG Vent. Rate : 073 BPM Atrial Rate : 073 BPM P-R Int : 156 ms QRS Dur : 082 ms QT Int : 414 ms P-R-T Axes : 109 007 038 degrees QTc Int : 456 ms Poor data quality, interpretation may be adversely affected Normal sinus rhythm Possible Inferior infarct , age undetermined Cannot rule out Anterior infarct , age undetermined Abnormal ECG When compared with ECG of 01-JAN-2021 15:41, No significant change Confirmed by Adam Horvath ([id number]) on 08/05/2021 1:07:47 PM Referred By: REFERRED SELF Confirmed By:Adam Horvath
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
[2021-08-05] MEDS: cefTRIAXone SODIUM 2,000 MG in DEXTROSE 5% 50 ML IV SCH (13:52)
--- NOTE | 2021-08-05 15:13 | Hospitalist Progress Note ---
Date of Service August 05, 2021 Assessment & Plan (1) UTI (urinary tract infection): (2) Hallucination: (3) Hypertension: (4) CKD (chronic kidney disease) stage 3, GFR 30-59 ml/min: (5) DVT prophylaxis: Plan: This is an 85-year-old female who has significant past medical history of HTN, HLD, CKD stage III, glaucoma, lumbar spinal stenosis who presents to ED secondary to hallucinations x1 year with over worsening in the past month. UTI Cultures growing gram-negative bacilli. Continue ceftriaxone. Studies are pending. Altered mental status Hallucination, visual pt with very real hallucinations regarding her and David Film Color Tester at bedside states pt has always been committed to her armida and her and over past year has been manifesting it self outward in these visual hallucinations which to the patient are very real, recently in past month has gotten significantly worse. 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 Other than UTI no overt organic cause. TSH WNL b12 WNL, RPR CT head negative Appreciate psychiatry input. Possibly component of delirium/delusional disorder or ritter body dementia. Recommended to avoid antipsychotics. If needed patient can have Seroquel or olanzapine. HTN bp stable conitne hydralazine, losartan and atenolol HLD continue statin CKD 3 monitor renal function avoid nephrotoxic agents baseline cr 1.0 Dispo: med/surg, pt/ot, psych eval, will need to be determined if pt safe to return to independent living PCP: Josemanuel FULL CODE Admission and Anticipated Discharge Date Admission Date: August 04, 2021 Subjective Awake and alert. Patient is oriented x3. Denies any chest pain, shortness of breath, cough, nausea/vomiting, abdominal pain, diarrhea or dysuria. Reports good p.o. intake. Continues to endorse that her came to visit her yesterday and he wanted her to come with her. However, he states that "they" told him that she cannot go with him yet to the [facility] as she has to go to the hospital. Review of Systems Review of Systems: All systems reviewed & are unremarkable except as noted in HPI & below Physical Exam Physical Exam: General: A&Ox3 HENT: NCAT, MMM, EOMI Eyes: PERRLA Neck: Supple, normal range of motion CVS: normal rate and rhythm Resp: b/l breath sounds Abdomen: Soft, ND/NT Extremities: No c/c/e Neuro: face symmetric, no focal deficit Skin: warm and dry, no rashes/lesions/errythema MSK: normal ROM, no joint swelling/erythema Results & Data Results & Data ([facility]) Vital Signs (Past 12 Hours) Vital Signs Temp Pulse Resp BP Pulse Ox 08/05/21 13:51 160/84 H 08/05/21 07:30 36.7 C 65 16 147/79 H 96
[2021-08-05] MEDS: ACETAMINOPHEN 325 MG TAB PO PRN (17:25)
[2021-08-05] MEDS: LOSARTAN POTASSIUM 50 MG TAB PO SCH (20:56)
[2021-08-05] MEDS: ATORVASTATIN 40 MG TAB PO SCH (20:56)
[2021-08-05] MEDS: ASPIRIN 81 MG ECTAB PO SCH (20:56)
[2021-08-05] MEDS: ENOXAPARIN INJ 30 MG/0.3 ML SYR SQ SCH (21:00)
[2021-08-06] MEDS: MULTIVITAMIN CHEWABLE TAB PO SCH (08:52)
[2021-08-06] MEDS: hydrALAZINE HCL 25 MG TAB PO SCH ×2 (08:52→13:26)
[2021-08-06] MEDS: CALCIUM 600MG + VIT D 400 IU TAB PO SCH (08:52)
[2021-08-06] MEDS: ATENOLOL 50 MG TABLET PO SCH (08:52)
[2021-08-06] MEDS: TIMOLOL MALEATE 0.5% OP SOLN 5 ML BTL OPB SCH (08:53)
[2021-08-06] MEDS: cefTRIAXone SODIUM 2,000 MG in DEXTROSE 5% 50 ML IV SCH (13:26)
--- NOTE | 2021-08-06 15:46 | Discharge Summary ---
Date of Service August 06, 2021 Admission HPI Per Admitting Provider This is an 85-year-old female who has significant past medical history of HTN, HLD, CKD stage III, glaucoma, lumbar spinal stenosis who presents to ED secondary to hallucinations x1 year with over worsening in the past month. Her very close friend and tyre finisher and examiner is at bedside. She currently resides at the [facility] in independent living. When asked what brought her to the hospital she states, "I am unsure I feel well." Report Programmer elicits that over the past year patient has been having significant visualizations of her who has been passed for approximately 9 years as well as conversation with David. Today would Pipe their 65th wedding anniversary. Patient elicits to having very little conversations with her and David about a green party that was planned for today that was going to occur in [facility]. She was told there would be food and that she would not need to take her medications. She was told the green party was going to be at 3 PM in a very distinct location was marked for this event. She was found wandering outside of the [facility], and stated she was going to this green party. Due to concern she was brought to the ER. Report Programmer states that the patient has been very close with her armida all of her life. Over the past year it has seemed to manifest itself more prominently, specifically visually. She did have a neuropsychiatric evaluation at the end of June which revealed concerns for dementia; however, for the past year patient is very sharp and in good shape given age. Patient overall feels well denies any acute concerns. She denies any recent illness, fever, chills, sweats, lightheadedness, dizziness, chest pain, shortness breath, cough, nausea, vomiting, abdominal pain. She denies any dysuria, increased with urgency or frequency or hematuria. She is moving her bowels normally. She did not take any of her medications today. She admits to visualizations and they are reality for her. Admission Exam Per Admitting Provider Constitutional: WD/WN, F, elderly, vitals as above, NAD, sitting up in bed, pleasant, conversing easily Head: Normocephalic, Atraumatic Eyes: PERRL, conjunctivae normal, anicteric sclerae ENMT: external ear and nose normal, oropharynx normal Neck: trachea midline, no thyromegaly normal visual inspection Respiratory: normal respiratory effort, lungs clear to auscultation, no wheeze, rales, rhonchi. Normal insp/exp effort, no accessory muscle use Cardiovascular: RRR, no murmur, no edema Vessels: no JVD or carotid bruit Chest: normal inspection of chest Abdomen: normal bowel sounds, soft, nontender, no hepatosplenomegaly Musculoskeletal: no cyanosis or clubbing, extremities motor strength 5/5 Skin: no rashes, warm and dry normal turgor Neurologic: PERRL, EOMI, accommodation nl, no face palsy, no dysarthria CN's II-XI intact bilaterally and moves all extremities Psychiatric: A+Ox3, euthymic affect Lymphatic: no cervical or axillary lymphadenopathy : deferred Principal Diagnosis Acute metabolic encephalopathy 2/2 E coli UTI-improved major neurocognitive disorder delusions Discharge Exam CONSTITUTIONAL: WNWD, vitals as above, generally well-appearing, NAD, ambulating independently. EYES: normal conjunctivae, no scleral icterus ENT: external ear and nose normal, MMM RESPIRATORY: clear to auscultation bilaterally, no crackles, rales or wheezes, normal respiratory effort CARDIOVASCULAR: regular rate and rhythm, S1 and 2 heard without murmurs, gallops or rubs, no JVD, no peripheral edema CHEST: inspection of chest was normal GASTROINTESTINAL: normal bowel sounds, soft, nontender MUSCULOSKELETAL: strength 5/5 throughout, head is normocephalic and atraumatic SKIN: warm and dry NEUROLOGIC: CN 2-12 grossly intact, no sensory deficit, normal cognition, normal speech, no tremor PSYCHIATRIC: alert cooperative and answering questions appropriately. Euthymic mood, makes good eye contact, language grossly intact, recent memory grossly intact. Discharge Data Allergies Allergy/AdvReac Type Severity Reaction Status Date / Time amoxicillin Allergy Mild RASH Verified 08/04/21 14:16 Bactrim Allergy Mild RASH Verified 04/29/17 08:25 sulfamethoxazole Allergy Mild RASH Verified 08/04/21 14:16 trimethoprim Allergy Mild RASH Verified 08/04/21 14:16 benzalkonium chloride Allergy Unknown EYE ITCHING Verified 08/04/21 14:16 Penicillins Allergy Unknown Verified 08/04/21 14:16 travoprost Allergy Unknown EYE ITCHING Verified 08/04/21 14:16 DISPRONOX Allergy Unknown unknown Uncoded 08/04/21 14:16 Consultations 08/04/21 15:10 ED Decision to Admit Stat 08/04/21 16:42 Consult Psychiatry Routine Ordered Studies Laboratory Results WBC 5.76 K/uL (4.8-10.8) 08/05/21 07:07 RBC 3.87 M/uL (4.2-5.4) L 08/05/21 07:07 Hgb 12.5 g/dL (12.0-16.0) 08/05/21 07:07 Hct 36.4 % (37-47) L 08/05/21 07:07 MCV 94.1 fL (80-100) 08/05/21 07:07 MCH 32.3 pg (25-34) 08/05/21 07:07 MCHC 34.3 g/dL (32-36) 08/05/21 07:07 RDW Std Deviation 46.2 fL (36.4-46.3) 08/05/21 07:07 RDW Coeff of Scott 13.4 % (11.5-14.5) 08/05/21 07:07 Plt Count 232 K/uL (130-400) 08/05/21 07:07 MPV 10.7 fL (7.4-10.4) H 08/05/21 07:07 Immature Gran % (Auto) 0.0 % 08/05/21 07:07 Neut % (Auto) 59.7 % 08/05/21 07:07 Lymph % (Auto) 33.3 % 08/05/21 07:07 Terry % (Auto) 5.9 % 08/05/21 07:07 Eos % (Auto) 0.9 % 08/05/21 07:07 Baso % (Auto) 0.2 % 08/05/21 07:07 Neut # (Auto) 3.44 K/uL (1.4-6.5) 08/05/21 07:07 Lymph # (Auto) 1.92 K/uL (1.2-3.4) 08/05/21 07:07 Terry # (Auto) 0.34 K/uL (0.11-0.59) 08/05/21 07:07 Eos # (Auto) 0.05 K/uL (0-0.5) 08/05/21 07:07 Baso # (Auto) 0.01 K/uL (0-0.2) 08/05/21 07:07 Immature Gran # (Auto) 0.00 K/uL (0.00-0.02) 08/05/21 07:07 Sodium 142 mmol/L (136-145) 08/05/21 07:07 Potassium 3.9 mmol/L (3.5-5.1) 08/05/21 07:07 Chloride 114 mmol/L (98-107) H 08/05/21 07:07 Carbon Dioxide 21 mmol/L (21-32) 08/05/21 07:07 Anion Gap 7.0 (3-11) 08/05/21 07:07 BUN 24 mg/dl (7-18) H 08/05/21 07:07 Creatinine 1.01 mg/dl (0.6-1.2) 08/05/21 07:07 Est Cr Clr Drug Dosing 35.2 ml/min 08/05/21 07:07 Est GFR ( Amer) 58.8 ml/min 08/05/21 07:07 Est GFR (Non-Af Amer) 50.7 ml/min 08/05/21 07:07 BUN/Creatinine Ratio 23.9 (10-20) H 08/05/21 07:07 Glucose 93 mg/dl (70-99) 08/05/21 07:07 Calcium 8.9 mg/dl (8.5-10.1) 08/05/21 07:07 Magnesium 1.8 mg/dl (1.8-2.4) 08/05/21 07:07 Total Bilirubin 0.4 mg/dl (0.2-1) 08/04/21 13:18 AST 20 U/L (15-37) 08/04/21 13:18 ALT 16 U/L (12-78) 08/04/21 13:18 Alkaline Phosphatase 68 U/L (45-117) 08/04/21 13:18 Total Protein 8.1 gm/dl (6.4-8.2) 08/04/21 13:18 Albumin 3.8 gm/dl (3.4-5.0) 08/04/21 13:18 Globulin 4.3 gm/dl (2.5-4.0) H 08/04/21 13:18 Albumin/Globulin Ratio 0.9 (0.9-2) 08/04/21 13:18 Vitamin B12 289 pg/ml (193-986) 08/05/21 07:07 TSH 1.590 uIu/ml (0.300-4.500) 08/04/21 13:18 Urine Color Yellow 08/04/21 13:24 Urine Appearance Clear (Clear) 08/04/21 13:24 Urine pH 5.5 (4.5-7.5) 08/04/21 13:24 Ur Specific [place] 1.018 (1.000-1.030) 08/04/21 13:24 Urine Protein Trace (Negative) H 08/04/21 13:24 Urine Glucose (UA) Negative (Negative) 08/04/21 13:24 Urine Ketones Negative (Negative) 08/04/21 13:24 Urine Blood Negative (Negative) 08/04/21 13:24 Urine Nitrite Positive (Negative) A 08/04/21 13:24 Urine Bilirubin Negative (Negative) 08/04/21 13:24 Urine Urobilinogen Negative (Negative) 08/04/21 13:24 Ur Leukocyte Esterase 1+ (Negative) H 08/04/21 13:24 Urine WBC (Auto) >30 /hpf (0-5) H 08/04/21 13:24 Urine RBC (Auto) 0-4 /hpf (0-4) 08/04/21 13:24 U Hyaline Cast (Auto) 1-5 /lpf (0-5) 08/04/21 13:24 U Epithel Cells (Auto) 0-5 /lpf (0-5) 08/04/21 13:24 Urine Bacteria (Auto) 4+ (Negative) H 08/04/21 13:24 Salicylates < 1.7 mg/dl (2.8-20) L 08/04/21 13:18 Urine Opiates Screen Neg (Neg) 08/04/21 13:24 Ur Methadone, Qual Neg (Neg) 08/04/21 13:24 Acetaminophen < 2 ug/ml (10-30) L 08/04/21 13:18 Urine Barbiturates Neg (Neg) 08/04/21 13:24 Ur Phencyclidine (PCP) Neg (Neg) 08/04/21 13:24 U Amphetamin/Meth Scrn Neg (Neg) 08/04/21 13:24 MDMA (Ecstasy) Screen Neg (Neg) 08/04/21 13:24 U Benzodiazepines Scrn Neg (Neg) 08/04/21 13:24 Ur Cocaine Metabolite Neg (Neg) 08/04/21 13:24 U Marijuana (THC) Screen Neg (Neg) 08/04/21 13:24 Ethyl Alcohol mg/dL < 3.0 mg/dl (0-3) 08/04/21 13:18 COVID-19 Eval Order Covid19 at [facility] 08/04/21 13:18 SARS-CoV-2 (PCR) NEGATIVE (Negative) 08/04/21 13:[address] 08/04/21 13:00 CT OF THE HEAD WITHOUT CONTRAST CLINICAL HISTORY: Confusion. COMPARISON STUDY: No previous studies for comparison. CT DOSE: 537.48 mGy.cm TECHNIQUE: Helical axial images of the head were obtained without IV contrast. Automated exposure control was utilized for the study. A dose lowering technique was utilized adhering to the principles of ALARA. FINDINGS: No acute intracranial hemorrhage, midline shift or mass effect is present. White matter hypodensities are suggestive of small vessel disease. The ventricular system is unremarkable. The basal cisterns are patent. No extra- axial collections are present. There are no findings to suggest acute dural sinus thrombosis or acute territorial infarct. No significant calvarial abnormalities are present. Visualized portions of the sinuses and mastoid air cells are clear. IMPRESSION: No acute intracranial findings. ACT 112: Negative or not required by law. Electronically signed by: Salvatore Franklin M.D. 08/04/2021 2:19 PM Hospital Course (1) Acute metabolic encephalopathy: Confusion noted on arrival has improved with treatment of UTI. (2) UTI (urinary tract infection): Hernandez-sensitive E coli noted on urine culture. Patient is doing well at time of discharge reporting some initial dysuria that has now resolved. She reports feeling much better. Mentating at her baseline and she is ambulating independently. She has family coming to stay with her over the next week. Multiple medication allergies, doing well on ceftriaxone. Transition to cefdinir x 5 days to complete the course. Spoke with her son at discharge and explained assessments and discharge plan. He and his verbalized understanding. (3) Delusions: Seems to be improved since treating UTI. 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 Total Time Total Time Spent Total Time Spent (In Minutes): 60 Discharge Plan Discharge Items Patient Disposition: Home - Self-Care Reason For Visit: UTI Discharge Diagnosis: Acute metabolic encephalopathy 2/2 E coli UTI-improved major neurocognitive disorder delusions Condition on Discharge: Good Activity: Resume your previous activity Non-emergency contact: Primary Care Provider Call non-emergency contact if: you have any medication questions and your symptoms worsen Follow-up/Referrals: Starr Abernathy DO [Primary Care Provider] - Diet: Regular Addtl Attending Provider Instructions: Please take all medications as instructed on discharge list below. It is recommended that you follow-up with your primary care provider within one week of hospital discharge to ensure you are doing well after returning home. A referral to a neuropsychologist or neurologist for formal testing and diagnosis of underlying dementia is prudent. Please work with your primary care provider for a referral to this type of specialist when convenient. It was a pleasure taking care of you! Please call if you have any questions or problems. You can reach a [facility] hospitalist on duty at [facility] 24 hours a day by calling [phone]. Take care of yourself. Suzanne Goodman DO [facility] Hospitalist Pending Studies at Discharge: No Stand-Alone Forms: [facility] Medications and DC Order Prescriptions: New cefdinir 300 mg capsule 300 mg PO Q12H Qty: 10 RF: 0 Continued hydralazine 25 mg tablet 25 mg PO TID RF: 0 aspirin [Adult Aspirin Regimen] 81 mg tablet,delayed release (DR/EC) 81 mg PO HS RF: 0 atorvastatin 40 mg tablet 40 mg PO QPM RF: 0 atenolol 50 mg tablet 50 mg PO QAM RF: 0 timolol maleate 0.5 % drops 1 drp OPB QAM RF: 0 losartan 100 mg tablet 100 mg PO HS RF: 0 multivitamin Tablet,Chewable 1 tab PO QAM RF: 0 calcium carbonate-vitamin D3 [Calcium 600 + D(3)] 600 mg(1,500mg) -400 unit Tablet 1 tab PO DAILY RF: 0 Discharge Orders: Discharge Order (Routine); Ordered 08/06/21 Ordered By: Suzanne Goodman Admission Data Admit Date/Time: 08/04/21 15:34 Attending Provider: Suzanne Goodman Admit Provider: Shanika Vazquez Primary Care Provider: Starr Abernathy Other Providers: Shanika Vazquez ; Patricia Benitez ; Ursula Trevino ; Paris Simmons ; Shalom Juan
== END 2021-08-06 18:20 | disposition home or self-care (01) | DRG 689 ==
LOC: ED 11:47 → 3N 15:34 → SUATTDRO 15:34 → 3N 16:37